=== PATIENT | male | born 1960 | race Caucasian/White ===

== ENCOUNTER 2019-02-04 21:36 | Emergency (ER) | payer BC ==
--- NOTE | 2019-02-04 22:43 | RADIOLOGY REPORT (SQ) ---
3 VIEWS OF LEFT FOOT HISTORY: Open wound. COMPARISON: None. FINDINGS: There is soft tissue swelling and irregularity overlying the first digit. There is also a nondisplaced fracture of the first distal phalanx. No dislocation. The joint spaces are preserved. Bipartite medial hallux sesamoid. IMPRESSION: Nondisplaced fracture of the first distal phalanx.
[2019-02-04] MEDS ORDERED: LIDOCAINE 1%/EPINEPHRINE INJ 20 ML VIAL ONE (23:04)
[2019-02-05] MEDS ORDERED: CEPHALEXIN 500 MG CAPSULE PO ONE (00:27)
--- NOTE | 2019-02-05 00:31 | ER Document Report ---
ED General - General Chief Complaint: Foot Injury Stated Complaint: LEFT GREAT TOE INJURY Time Seen by Provider: 02/04/19 21:59 Primary Care Provider: HAMILTON MUELLER MD [Primary Care Provider] - Follow up as needed CHUCKY GOLDMAN DO [ACTIVE STAFF] - Follow up in 3-5 days Notes: Patient is a 58-year-old male past medical history of peripheral neuropathy secondary to herniated disks who presents with a laceration and injury to his left great toe. The patient states that somehow his toe bent on the ground when he was changing his shorts causing it to split open. The patient states that he has a very mild, throbbing, constant discomfort to the toe. No exacerbating or alleviating factors. Notes that he has almost no sensation in the foot at baseline secondary to his chronic peripheral neuropathy. Tetanus is up-to-date. Denies any injury to any other location. Has not seen his primary care doctor regarding today's concerns. TRAVEL OUTSIDE OF THE [place] IN LAST 30 DAYS: No - Related Data Allergies/Adverse Reactions: No Known Allergies Allergy (Verified 04/26/16 14:32) Past Medical History - General Information source: Patient - Social History Smoking Status: Never Smoker Frequency of alcohol use: None Drug Abuse: None Lives with: Spouse/Significant other Family History: Reviewed & Not Pertinent - Past Medical History Cardiac Medical History: Reports: Hx Hypercholesterolemia, Hx Hypertension Denies: Hx Coronary Artery Disease, Hx Heart Attack Pulmonary Medical History: Denies: Hx Asthma, Hx Bronchitis, Hx COPD, Hx Pneumonia Neurological Medical History: Denies: Hx Cerebrovascular Accident, Hx Seizures GI Medical History: Reports: Hx Hiatal Hernia Musculoskeletal Medical History: Denies Hx Arthritis - Immunizations Hx Diphtheria, Pertussis, Tetanus Vaccination: Yes Hx Pneumococcal Vaccination: 09/19/00 Review of Systems - Review of Systems Notes: Constitutional: Negative for fever. Eyes: Negative for visual changes. ENT: Negative for facial injury Cardiovascular: Negative for chest injury. Respiratory: Negative for shortness of breath. Gastrointestinal: Negative for abdominal injury. Genitourinary: Negative for genital injury Musculoskeletal: Positive for left great toe injury Skin: Positive for laceration/abrasions. Neurological: Negative for head injury. Physical Exam - Vital signs Vitals: Temp Pulse Resp BP Pulse Ox 98.4 F 67 21 H 124/73 96 02/05/19 00:48 02/05/19 00:48 02/05/19 00:48 02/05/19 00:48 02/05/19 00:48 Interpretation: Normal Notes: PHYSICAL EXAMINATION: GENERAL: Well-appearing, well-nourished and in no acute distress. HEAD: Atraumatic, normocephalic. EYES: sclera anicteric, conjunctiva are normal. ENT: Moist mucous membranes. NECK: Normal range of motion LUNGS: Normal work of breathing HEART: 2+ DP pulses bilaterally EXTREMITIES: no pitting or edema. No cyanosis. Dorsi and plantar flexion of all toes the left foot remain intact. NEUROLOGICAL: No focal neurological deficits. Moves all extremities spontaneously and on command. PSYCH: Normal mood, normal affect. SKIN: Warm, Dry, normal turgor, 5 cm laceration just below the level of the nail on the left great toe with a gaping wound exposing a underlying fracture of the distal phalanx of the toe Course - Re-evaluation Re-evalutation: 02/05/19 00:29 Patient presents with an extensive laceration just below the cuticle level of the left great toe with exposure of a distal phalanx fracture. Capillary refill less than 1 second in all digits of the left toe. Patient has minimal to no sensation in the feet at baseline secondary to peripheral neuropathy. Given the extensive gaping nature of the wound with exposure of a underlying fracture the wound was irrigated extensively, prepped and then closed using horizontal mattress stitches to maintain tension and prevent the wound from remaining gaping open. Tetanus is already up-to-date. Patient was put on cephalexin prophylaxis given underlying fracture. He has been informed of the underlying fracture and need for orthopedic surgical follow-up. At this time will disch arge with return precautions and follow-up recommendations. Verbal discharge instructions given a the bedside and opportunity for questions given. Medication warnings reviewed. Patient is in agreement with this plan and has verbalized understanding of return precautions and the need for primary care follow-up in the next 24-72 hours. - Vital Signs Vital signs: Temp Pulse Resp BP Pulse Ox 98.4 F 67 21 H 124/73 96 02/05/19 00:48 02/05/19 00:48 02/05/19 00:48 02/05/19 00:48 02/05/19 00:48 - Diagnostic Test Radiology reviewed: Image reviewed, Reports reviewed Radiology results interpreted by me: 02/05/19 00:31 Left foot x-ray: Distal phalanx fracture of left great toe Procedures - Laceration/Wound Repair Left Wound length (cm): 5 Wound's Depth, Shape: Irregular, Nail-avulsed, Contused tissue Laceration pre-procedure: Sterile PPE donned Anesthetic type: 1% Lidocaine w/epi Volume Anesthetic (mLs): 3 Wound explored: Contaminated Irrigated w/ Saline (mLs): 500 Wound Debrided: Moderate Wound Repaired With: Sutures Suture Size/Type: 4:0, Prolene Number of Sutures: 9 Layer Closure?: No Post-procedure wound care: Sterile dressing applied Post-procedure NV exam normal: Yes Complications: No Discharge - Discharge Clinical Impression: Fracture of left great toe Qualifiers: Encounter type: initial encounter Fracture type: open Phalanx: distal Fracture alignment: displaced Qualified Code(s): S92.422B - Displaced fracture of distal phalanx of left great toe, initial encounter for open fracture Laceration of left great toe Qualifiers: Encounter type: initial encounter Damage to nail status: with damage Foreign body presence: without foreign body Qualified Code(s): S91.212A - Laceration without foreign body of left great toe with damage to nail, initial encounter Condition: Good Disposition: HOME, SELF-CARE Additional Instructions: Please return to your primary doctor, the ED, or an urgent care in 7 days for suture removal. Return immediately if you develop spreading redness around the wound, pus from the wound, worsening pain, or a fever of >100.4. Keep the area clean and dry. Wash gently with soap and water twice daily and cover with antibiotic ointment. As we discussed, you need to follow-up with orthopedic surgery as there is also an underlying fracture of your toe. Prescriptions: Cephalexin Monohydrate [Keflex 500 mg Capsule] 500 mg PO Q6H 5 Days capsule Forms: Return to Work Referrals: HAMILTON MUELLER MD [Primary Care Provider] - Follow up as needed CHUCKY GOLDMAN DO [ACTIVE STAFF] - Follow up in 3-5 days
[2019-02-05 00:49] VITALS: BP 124/73
== END 2019-02-05 00:48 | disposition home or self-care (01) ==
LOC: ER 21:36
DX: S92.422B Displaced fracture of distal phalanx of left great toe, initial encounter for open fracture (principal); X50.0XXA Overexertion from strenuous movement or load, initial encounter; Y93.89 Activity, other specified; G62.9 Polyneuropathy, unspecified; I10 Essential (primary) hypertension
CPT/HCPCS: 99283; 73630; 12002; J3490